=== PATIENT | male | born 1970 | race American Indian/Alaskan Native ===

== ENCOUNTER 2016-05-25 06:45 | Emergency (ER) | payer OTHER ==
[2016-05-25] MEDS ORDERED: CATAPRES PO ONE (07:35)
[2016-05-25] MEDS ORDERED: CATAPRES ONE (07:43)
[2016-05-25 08:20] LABS: Basophils % (Auto) 0.4 % (0.0-1.8); Eosinophils % (Auto) 1.5 % (0.0-4.3); Hematocrit 47.4 % (35.5-45.6); Mean Corpuscular HGB Conc 34 % (32-34); Mean Corpuscular Hemoglobin 33 pg (28-32); Mean Corpuscular Volume 97 fl (84-94); Platelet Count 222 K/mm3 (140-440); Red Blood Count 4.88 M/mm3 (3.65-5.03); Red Cell Distribution Width 12.8 % (13.2-15.2); White Blood Count 5.4 K/mm3 (4.5-11.0)
[2016-05-25 08:42] LABS: Alanine Aminotransferase 22 units/L (7-56); Albumin 4.2 g/dL (3.9-5); Albumin/Globulin Ratio 1.2 %; Alkaline Phosphatase 67 units/L (35-129); Anion Gap 20 mmol/L; BUN/Creatinine Ratio 15.38; Bilirubin,Total 0.4 mg/dL (0.1-1.2); Blood Urea Nitrogen 20 mg/dL (9-20); Calcium 9.7 mg/dL (8.4-10.2); Carbon Dioxide 23 mmol/L (22-30); Chloride 99.7 mmol/L (98-107); Glucose 137 mg/dL (75-100); Lipase 171 units/L (13-60); Potassium 3.5 mmol/L (3.6-5.0); Sodium 139 mmol/L (137-145); Total Protein 7.7 g/dL (6.3-8.2)
[2016-05-25 09:33] VITALS: BP 139/100
--- NOTE | 2016-05-25 09:52 | Emergency Department Report ---
HPI - General Chief Complaint: High BP Time Seen by Provider: 05/25/16 09:40 - HPI HPI: Chief complaint: Patient requesting med refill HPI: Patient with history of hypertension states he's been out of his blood pressure medicines for 1 week. Patient denies any symptoms to me. Denies chest pain or headache. Patient states he tried to get an appointment to get his meds refilled but no one would see him until his new insurance kicked in. Mode of arrival: private car Source: Patient Began: One week Duration: One week Context: See above Quality: Denies pain Severity: 0 out of 10 Improved with: Nothing Worsened with: Nothing Associated signs and symptoms: Denies ED Past Medical Hx - Past Medical History Previous Medical History?: Yes Hx Hypertension: Yes Hx Diabetes: Yes (diet control) - Surgical History Past Surgical History?: No - Social History Smoking Status: Current Every Day Smoker Substance Use Type: Alcohol, Marijuana - Medications Home Medications: Home Medications Medication Instructions Recorded Confirmed Last Taken Type Carvedilol [Coreg] 25 mg PO BID #60 tablet 05/25/16 Unknown Rx Chlorthalidone [Thalitone] 25 mg PO QDAY #30 tablet 05/25/16 Unknown Rx Lisinopril [Zestril TAB] 40 mg PO QDAY #30 tablet 05/25/16 Unknown Rx cloNIDine [Catapres] 0.2 mg PO BID #60 tablet 05/25/16 Unknown Rx ED Review of Systems ROS: Stated complaint: ELEVATED BP Other details as noted in HPI ROS Constitutional: No fever ENT: No uri symptoms Cardiovascular: No chest pain Respiratory: No sob or cough GI: No nausea vomiting or diarrhea : No dysuria frequency or urgency, Skin: No rash Neuro: No focal weakness or numbness Psych: No depression Jr/lymph: No edema Physical Exam - Physical Exam Vital Signs: Vital Signs 05/25/16 05/25/16 05/25/16 07:12 07:30 07:38 Temperature 97.8 F Pulse Rate 86 80 78 Respiratory 18 12 Rate Blood Pressure 167/130 174/122 Blood Pressure 159/117 [Left] O2 Sat by Pulse 98 97 Oximetry 05/25/16 05/25/16 05/25/16 08:00 08:30 09:00 Temperature Pulse Rate 77 74 74 Respiratory 10 L 15 16 Rate Blood Pressure 161/125 161/125 139/100 Blood Pressure [Left] O2 Sat by Pulse 99 98 97 Oximetry Physical Exam: GENERAL: The patient is well-developed well-nourished . HEENT: Normocephalic. Atraumatic. Extraocular motions are intact. Patient has moist mucous membranes. NECK: Supple. No meningitic signs are noted. There is no adenopathy noted. CHEST/LUNGS: Clear to auscultation. There is no respiratory distress noted. HEART/CARDIOVASCULAR: Regular. There is no tachycardia. There is no gallop rub or murmur. ABDOMEN: Abdomen is soft, nontender. Patient has normal bowel sounds. There is no abdominal distention. SKIN: There is no rash. There is no edema. There is no diaphoresis. NEURO: The patient is awake, alert, and oriented. The patient is cooperative. Normal gait. The patient has normal speech. MUSCULOSKELETAL: There is no tenderness or deformity. There is no limitation range of motion. There is no evidence of acute injury. ED Course Vital Signs 05/25/16 05/25/16 05/25/16 07:12 07:30 07:38 Temperature 97.8 F Pulse Rate 86 80 78 Respiratory 18 12 Rate Blood Pressure 167/130 174/122 Blood Pressure 159/117 [Left] O2 Sat by Pulse 98 97 Oximetry 05/25/16 05/25/16 05/25/16 08:00 08:30 09:00 Temperature Pulse Rate 77 74 74 Respiratory 10 L 15 16 Rate Blood Pressure 161/125 161/125 139/100 Blood Pressure [Left] O2 Sat by Pulse 99 98 97 Oximetry - Reevaluation(s) Reevaluation #1: 05/25/16 Patient given a dose of clonidine with improvement of his blood pressure. ED Medical Decision Making - Lab Data Result diagrams: 05/25/16 07:40 05/25/16 07:40 Urinalysis within normal limits. - EKG Data -: EKG Interpreted by Me EKG shows normal: sinus rhythm Rate: normal (81) - EKG Data When compared to previous EKG there are: no significant change Interpretation: other (early repolarization) Critical care attestation.: If time is entered above; I have spent that time in minutes in the direct care of this critically ill patient, excluding procedure time. ED Disposition Clinical Impression: Medication refill, Essential hypertension Disposition: DISCHARGED TO HOME OR SELFCARE Is pt being admited?: No Does the pt Need Aspirin: No Condition: Stable Instructions: Hypertension (ED) Prescriptions: Carvedilol [Coreg] 25 mg PO BID #60 tablet Chlorthalidone [Thalitone] 25 mg PO QDAY #30 tablet cloNIDine [Catapres] 0.2 mg PO BID #60 tablet Lisinopril [Zestril TAB] 40 mg PO QDAY #30 tablet Referrals: PRIMARY CAREMD [Primary Care Provider] - 7-10 days Time of Disposition: 09:47
[2016-05-25 10:40] LABS: Bilirubin,Urine NEG (Negative); Blood,Urine NEG (Negative); Ketones,Urine NEG (Negative); Leukocyte Esterase,Urine NEG (Negative); Mucus,Urine FEW /HPF; Nitrite,Urine NEG (Negative); Protein,Urine <15 mg/dL mg/dL (Negative); Urobilinogen,Urine < 2.0 mg/dL (<2.0); WBC,Urine < 1.0 /HPF (0.0-6.0)
== END 2016-05-25 09:59 | disposition home or self-care (01) ==
LOC: ED 06:45
DX: I10 Essential (primary) hypertension (principal); E11.9 Type 2 diabetes mellitus without complications; F17.200 Nicotine dependence, unspecified, uncomplicated
CPT/HCPCS: 36415; 80053; 81001; 83690; 85025; 93005; 93010; 99283